=== PATIENT | male | born 1980 | race Caucasian/White ===

== ENCOUNTER 2018-08-15 17:35 | Emergency (ER) | payer SELFPAY ==
[~2018-08-15] VITALS: Ht 180.3 cm; Wt 74.8 kg
[~2018-08-15 17:35] MED LIST: CLARITIN-D 10 M1 T21 PO; DARVOCET N 1001 TAB PO; FLEXERIL5 MG PO; FLONASE 0.05% 121 EA NAS; KEFLEX500 MG PO; MINIPRESS1 MG PO; MOTRIN800 MG PO; PROZAC20 MG PO; TYLENOL W/CODEI1 TA2 PO; VISTARIL50 MG PO; ZITHROMAX500 MG PO
== END 2018-08-15 18:42 | disposition left against medical advice (07) ==
LOC: ED 17:35
DX: S01.01XA Laceration without foreign body of scalp, initial encounter (principal); Z88.0 Allergy status to penicillin; Z88.1 Allergy status to other antibiotic agents; Z79.899 Other long term (current) drug therapy; W22.8XXA Striking against or struck by other objects, initial encounter; Y93.89 Activity, other specified; Y92.89 Other specified places as the place of occurrence of the external cause; Y99.8 Other external cause status

== ENCOUNTER 2018-12-14 12:39 | Emergency (ER) | payer MEDICAID ==
[~2018-12-14] VITALS: Ht 180.3 cm; Wt 72.6 kg
[2018-12-14 13:40] LABS: BASO # 0.1 10*3/uL (0.0-0.1); BASO % 1.3 % (0.0-1.0); EOS # 0.1 10*3/uL (0.0-0.4); HEMATOCRIT 47.2 % (42.0-52.0); HEMOGLOBIN 16.8 g/dl (14.0-18.0); LYMPH # 1.6 10*3/uL (1.3-4.4); LYMPH % 31.4 % (27.0-41.0); MEAN CELL VOLUME 95.4 fl (80.0-94.0); MEAN CORPUSCULAR HGB 33.9 pg (27.0-31.0); MEAN CORPUSCULAR HGB CONC 35.6 g/dl (33.0-37.0); MEAN PLATELET VOLUME 9.7 fl (9.6-12.3); MONO # 0.4 10*3/uL (0.1-1.0); MONO % 7.7 % (3.0-9.0); NEUT % 58.4 % (47.0-73.0); PLATELET COUNT AUTOMATED 237 10*3/uL (130-400); RED BLOOD COUNT 4.95 10*6/uL (4.50-5.90); RED CELL DISTRI WIDTH 11.9 % (0-14.5); WHITE BLOOD COUNT 5.2 10*3/uL (4.8-10.8)
[2018-12-14 13:55] LABS: ALKALINE PHOSPHATASE 65 U/L (45-117); BUN 7 mg/dl (7-24); CHLORIDE 106 mmol/L (98-107); CREATININE 0.83 mg/dL (0.70-1.30); POTASSIUM 4.1 mmol/L (3.5-5.1); SGOT/AST 36 IU/L (3-35); SGPT/ALT 36 U/L (12-78); SODIUM 139 mmol/L (136-145); TOTAL PROTEIN 7.4 gm/dL (6.4-8.2)
[2018-12-14 13:56] LABS: URINE AMPHETAMINES < 1000 (1000ng/ml); URINE BARBITURATES < 200 (200ng/ml); URINE BENZODIAZEPINES < 200 (200ng/ml); URINE CANNABINOIDS (THC) > 50 (50ng/ml); URINE COCAINE < 300 (300ng/ml); URINE METHADONE < 300 (300ng/ml); URINE OPIATES < 300 (300ng/ml)
[2018-12-14 14:01] LABS: URINE PHENCYCLIDINE < 25 (25ng/ml)
[2018-12-14] MEDS ORDERED: VISTARIL25 M2 PO (15:16)
== END 2018-12-14 15:15 | disposition home or self-care (01) ==
LOC: ED 12:39
PROVIDERS: Physician Assistant
DX: F41.9 Anxiety disorder, unspecified (principal); Z88.0 Allergy status to penicillin; Z88.1 Allergy status to other antibiotic agents; Z79.899 Other long term (current) drug therapy

== ENCOUNTER 2022-06-06 00:06 | Emergency (ER) | payer OTHER ==
[~2022-06-06 00:06] MED LIST changes: +VISTARIL25 M2 PO
[2022-06-06 02:12] LABS: BASO % 0.5 % (0.0-1.0); EOS # 0.2 10*3/uL (0.0-0.4); EOS % 3.1 % (1.0-4.0); HEMATOCRIT 35.9 % (42.0-52.0); LYMPH # 0.8 10*3/uL (1.3-4.4); LYMPH % 12.3 % (27.0-41.0); MEAN CELL VOLUME 79.8 fl (80.0-94.0); MEAN CORPUSCULAR HGB 26.2 pg (27.0-31.0); MEAN CORPUSCULAR HGB CONC 32.9 g/dl (33.0-37.0); MEAN PLATELET VOLUME 11.3 fl (9.6-12.3); MONO # 0.8 10*3/uL (0.1-1.0); MONO % 13.3 % (3.0-9.0); NEUT # 4.4 10*3/uL (2.3-7.9); NEUT % 70.5 % (47.0-73.0); PLATELET COUNT AUTOMATED 127 10*3/uL (130-400); RED CELL DISTRI WIDTH 20.9 % (0-14.5); WHITE BLOOD COUNT 6.2 10*3/uL (4.8-10.8)
[2022-06-06 02:25] LABS: ALKALINE PHOSPHATASE 108 U/L (45-117); BUN 5 mg/dl (7-24); CHLORIDE 101 mmol/L (98-107); CREATININE 1.06 mg/dL (0.70-1.30); POTASSIUM 3.3 mmol/L (3.5-5.1); SGOT/AST 149 IU/L (3-35); SGPT/ALT 75 U/L (12-78); SODIUM 134 mmol/L (136-145); TOTAL PROTEIN 8.7 gm/dL (6.4-8.2)
[2022-06-06 02:29] LABS: ETHYL ALCOHOL < 3.0 mg/dl (<3)
== END 2022-06-06 04:08 | disposition left against medical advice (07) ==
LOC: ED 00:06
PROVIDERS: Emergency Medicine
DX: S09.90XA Unspecified injury of head, initial encounter (principal); Z88.0 Allergy status to penicillin; Z88.1 Allergy status to other antibiotic agents; Z79.899 Other long term (current) drug therapy; F17.200 Nicotine dependence, unspecified, uncomplicated; W22.8XXA Striking against or struck by other objects, initial encounter; Y93.89 Activity, other specified; Y92.89 Other specified places as the place of occurrence of the external cause; Y99.8 Other external cause status

== ENCOUNTER 2023-11-11 17:18 | Emergency (ER) | payer SELFPAY ==
[~2023-11-11] VITALS: Ht 170.1 cm; Wt 76.7 kg
[2023-11-11 17:50] LABS: BASO # 0.1 10*3/uL (0.0-0.1); BASO % 1.5 % (0.0-1.0); EOS # 0.3 10*3/uL (0.0-0.4); EOS % 5.3 % (1.0-4.0); HEMATOCRIT 37.3 % (42.0-52.0); LYMPH # 2.3 10*3/uL (1.3-4.4); LYMPH % 38.2 % (27.0-41.0); MEAN CELL VOLUME 80.6 fl (80.0-94.0); MEAN CORPUSCULAR HGB 26.1 pg (27.0-31.0); MEAN CORPUSCULAR HGB CONC 32.4 g/dl (33.0-37.0); MEAN PLATELET VOLUME 9.6 fl (9.6-12.3); MONO # 0.3 10*3/uL (0.1-1.0); MONO % 5.1 % (3.0-9.0); NEUT % 49.7 % (47.0-73.0); PLATELET COUNT AUTOMATED 185 10*3/uL (130-400); RED BLOOD COUNT 4.63 10*6/uL (4.50-5.90); RED CELL DISTRI WIDTH 24.8 % (0-14.5)
[2023-11-11 18:00] LABS: ACT PARTIAL THROMBO TIME 29.4 SECONDS (20.0-32.1)
[2023-11-11 18:17] LABS: ALKALINE PHOSPHATASE 79 U/L (46-116); BUN < 5 mg/dl (9-23); CHLORIDE 102 mmol/L (98-107); CPK 52 U/L (34-171); LIPASE 30 U/L (12-53); POTASSIUM 3.8 mmol/L (3.4-5.1); SGPT/ALT 28 U/L (5-49); TOTAL PROTEIN 7.9 gm/dL (6.0-8.0)
[2023-11-11 18:21] LABS: ETHYL ALCOHOL 409.6 mg/dl (<3)
[2023-11-11 20:31] LABS: BILIRUBIN Negative (Negative); BLOOD Negative (Negative); CLARITY Clear (Clear); COLOR Yellow (Yellow); GLUCOSE Negative (Negative); KETONE Negative (Negative); LEUKO ESTERASE Negative (Negative); NITRITE Negative (Negative); PH 6.5 (4.5-8.0); SPECIFIC GRAVITY <= 1.005 (1.001-1.030); UROBILINOGEN 0.2 E.U./dl (0.0-1.0)
[2023-11-11 20:39] LABS: URINE AMPHETAMINES Negative (1000ng/ml); URINE BARBITURATES Negative (200ng/ml); URINE BENZODIAZEPINES Negative (200ng/ml); URINE CANNABINOIDS (THC) Positive (50ng/ml); URINE COCAINE Negative (300ng/ml); URINE METHADONE Negative (300ng/ml); URINE OPIATES Negative (300ng/ml); URINE PHENCYCLIDINE Negative (25ng/ml)
== END 2023-11-11 22:18 | disposition home or self-care (01) ==
LOC: ED 17:18
PROVIDERS: Family Medicine
DX: F10.129 Alcohol abuse with intoxication, unspecified (principal); R10.2 Pelvic and perineal pain; F32.A Depression, unspecified; F41.9 Anxiety disorder, unspecified; Z88.0 Allergy status to penicillin; Z88.1 Allergy status to other antibiotic agents; Z87.891 Personal history of nicotine dependence; Y90.0 Blood alcohol level of less than 20 mg/100 ml